=== PATIENT | male | born 1965 | race Caucasian/White ===

== ENCOUNTER 2016-10-01 15:06 | Emergency (ER) | payer BC, OTHER ==
[~2016-10-01] VITALS: Ht 177.8 cm; Wt 88.5 kg
[2016-10-01 15:21] VITALS: BP 131/80
== END 2016-10-01 20:21 | disposition left against medical advice (07) ==
LOC: ER 15:14
DX: M79.672 Pain in left foot (principal); Z53.21 Procedure and treatment not carried out due to patient leaving prior to being seen by health care provider

== ENCOUNTER 2017-04-24 18:55 | Emergency (ER) | payer BC, OTHER ==
[~2017-04-24] VITALS: Ht 172.7 cm; Wt 90.7 kg
[2017-04-24 19:09] VITALS: BP 129/92
[2017-04-24] MEDS ORDERED: SODIUM CHLORIDE 0.9% 1,000 ML IVB ONE (19:09)
[2017-04-24 20:47] LABS: Basophils # (auto) 0 uL; Basophils % (auto) 0.2 % (0.0-2.0); Eosinophils # (auto) 0 uL; Eosinophils % (auto) 0.1 % (0.0-7.0); Hematocrit 48.6 % (41.0-53.0); Lymphocytes # (auto) 1.3 uL; Lymphocytes % (auto) 10.8 % (10.0-50.0); Mean Corpuscular Hemoglobin 32.3 pg (28.0-32.0); Mean Corpuscular Volume 92.2 fL (80.0-100.0); Monocytes % (auto) 8.1 % (0.0-12.0); Neutrophils # (auto) 9.8 uL; Neutrophils % (auto) 80.8 % (37.0-80.0); Nucleated Red Blood Cells % 0.1 %; Platelet Count (auto) 254 10^3/uL (140-450); Red Cell Distribution Width 12.7 % (11.8-14.3); White Blood Cell 12.1 10^3/uL (4.4-10.8)
[2017-04-24 21:05] LABS: Albumin 4.6 g/dL (3.4-5.0); Alkaline Phosphatase 77 U/L (45-117); Anion Gap 16 (5-15); Aspartate Aminotransferase 22 U/L (15-37); BUN/Creatinine Ratio 21.8; Bilirubin, Total 0.5 mg/dL (0.2-1.0); Blood Urea Nitrogen 19 mg/dL (7-18); Calcium 9.1 mg/dL (8.5-10.1); Carbon Dioxide 20 mmol/L (21-32); Chloride 105 mmol/L (98-107); GFR African American 118 mL/min; GFR Non-African American 98 mL/min; Glucose 124 mg/dL (74-106); Magnesium 2.1 mg/dL (1.6-2.6); Potassium 3.6 mmol/L (3.5-5.1); Sodium 141 mmol/L (136-145); Total Protein 7.9 g/dL (6.4-8.2)
[2017-04-24 21:11] LABS: B-Type Natriuretic Peptide 1.52 pg/mL (0-100)
[2017-04-24 21:43] LABS: Temperature: 23.1 C (20.0-25.0)
== END 2017-04-25 01:56 | disposition left against medical advice (07) ==
LOC: ER 18:55
DX: B34.9 Viral infection, unspecified (principal); F17.210 Nicotine dependence, cigarettes, uncomplicated; Z53.29 Procedure and treatment not carried out because of patient's decision for other reasons
CPT/HCPCS: 36415; 71010; 80053; 82962; 83735; 83880; 84484; 85025; 85379; 93005; 94761

== ENCOUNTER 2018-11-06 02:43 | Emergency (ER) | payer BC, OTHER ==
[~2018-11-06] VITALS: Ht 177.8 cm; Wt 83.9 kg
[2018-11-06] MEDS ORDERED: NITROGLYCERIN 0.4 MG SL TAB SL PRN (03:00)
[2018-11-06] MEDS ORDERED: NITROGLYCERIN 0.4 MG SL TAB SL ONE (03:01)
[2018-11-06 03:11] LABS: Basophils # (auto) 0 uL; Basophils % (auto) 0.4 % (0.0-2.0); Eosinophils # (auto) 0.1 uL; Eosinophils % (auto) 1.4 % (0.0-7.0); Hemoglobin 17.1 g/dL (13.5-17.5); Lymphocytes # (auto) 1.5 uL; Lymphocytes % (auto) 19.7 % (10.0-50.0); Mean Corpuscular Hemoglobin 32.1 pg (28.0-32.0); Mean Corpuscular Hgb Conc. 34.8 g/dL (32.0-36.0); Mean Corpuscular Volume 92.2 fL (80.0-100.0); Monocytes # (auto) 0.6 uL; Monocytes % (auto) 7.7 % (0.0-12.0); Neutrophils # (auto) 5.4 uL; Neutrophils % (auto) 70.8 % (37.0-80.0); Platelet Count (auto) 220 10^3/uL (140-450); Red Blood Cells 5.32 10^6/uL (4.5-5.90); Red Cell Distribution Width 12.3 % (11.8-14.3); White Blood Cell 7.6 10^3/uL (4.4-10.8)
[2018-11-06 03:27] LABS: INR 0.87 (0.9-1.15); Partial Thromboplastin Time 23.8 sec (23.64-32.05); Prothrombin Time 9.5 sec (9.06-12.60)
[2018-11-06 03:32] LABS: Alanine Aminotransferase 56 U/L (16-61); Albumin 4.2 g/dL (3.4-5.0); Anion Gap 13 (5-15); Aspartate Aminotransferase 32 U/L (15-37); BUN/Creatinine Ratio 26.3; Blood Urea Nitrogen 21 mg/dL (7-18); Carbon Dioxide 19 mmol/L (21-32); Chloride 111 mmol/L (98-107); GFR African American 129 mL/min; GFR Non-African American 107 mL/min; Magnesium 2.2 mg/dL (1.6-2.6); Sodium 143 mmol/L (136-145)
[2018-11-06 03:44] VITALS: BP 136/81
[2018-11-06] MEDS ORDERED: LORazepam 2MG/ML-1ML VIAL IV ONE (03:45)
[2018-11-06 04:14] LABS: Alkaline Phosphatase 48 U/L (45-117); Bilirubin, Total 0.2 mg/dL (0.2-1.0); Glucose 139 mg/dL (74-106); Total Protein 7.7 g/dL (6.4-8.2)
== END 2018-11-06 05:18 | disposition home or self-care (01) ==
LOC: ER 02:47
DX: R07.89 Other chest pain (principal); F41.9 Anxiety disorder, unspecified; F17.210 Nicotine dependence, cigarettes, uncomplicated
CPT/HCPCS: 36415; 71045; 80053; 83735; 83880; 84484; 85025; 85610; 85730; 93005; 96374; 99284; J2060